=== PATIENT | female | born 1965 | race Caucasian/White ===

== ENCOUNTER 2020-08-11 17:05 | Emergency (ER) | payer OTHER, MEDICAID, SELFPAY ==
[2020-08-11 19:29] VITALS: BP 141/80; PULSE 53; RESP 16; TEMP 36.1; BMI 28.8
--- NOTE | 2020-08-11 20:40 | CT_ITS ---
EXAMINATION: CT ABDOMEN AND PELVIS WITH CONTRAST CLINICAL INFORMATION: Right upper and left lower quadrant abdominal pain. Left flank pain. Bloating. COMPARISON: CT abdomen pelvis 12/12/2019 TECHNIQUE: Multidetector volumetric images were obtained from the superior aspect of the liver through the pubic symphysis following administration 85 mL of Omnipaque 350 intravenous contrast. Sagittal and coronal reformatted images were obtained on the technologist's workstation. Oral contrast: No This CT examination was performed using dose optimization techniques as appropriate, variously including the following: *Automated exposure control *Adjustment of mA and/or kV according to patient size (this includes techniques or standardized protocols for targeted exams where dose is matched to indication/reason for exam; i.e. extremities or head) *Use of iterative reconstruction technique DLP: 692 mGy-cm FINDINGS: Visualized lung bases demonstrate mild dependent atelectasis. The liver demonstrates normal size, contour and attenuation. The gallbladder is surgically absent. The pancreas is normal in appearance. Punctate calcifications within the spleen suggesting prior granulomatous disease. Small inferior splenule. The adrenal glands are unremarkable. Symmetrically enhancing kidneys. There is no hydronephrosis of either kidney. The stomach is decompressed. Normal caliber loops of small bowel. Moderate stool burden throughout the majority of the colon. The appendix is not clearly visualized, however, there is no focal inflammatory stranding within the right lower quadrant. Nonaneurysmal abdominal aorta which demonstrates only mild atherosclerotic disease. 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 No retroperitoneal lymphadenopathy. The bladder is only mildly distended resulting in suboptimal evaluation, however, there does appear to be mild diffuse bladder wall thickening. Unremarkable CT appearance of the uterus. No inguinal lymphadenopathy. No gross free pelvic fluid. Mild to moderate diffuse degenerative changes of the spine. IMPRESSION: 1. Moderate stool burden throughout the joint suggesting constipation. Clinical correlation recommended. 2. Dilated refluxing bilateral ovarian veins with her uterine varices. Findings suggest retroperitoneal venous malformation. 3. The bladder is only mildly distended resulting in suboptimal evaluation, however, there does appear to be mild diffuse bladder wall thickening. Clinical correlation recommended.
--- NOTE | 2020-08-11 20:56 | ED_ITS ---
HPI - Abdominal Pain General Chief Complaint: Abdominal Pain <KIMMIE Duke - Last Filed: 08/12/20 00:17> Stated Complaint: ABD PAIN/BACK PAIN <KIMMIE Duke Last Filed: 08/12/20 00:17> Time Seen by Provider: 08/11/20 20:25 <KIMMIE Duke - Last Filed: 08/12/20 00:17> Source: patient <KIMMIE Duke Last Filed: 08/12/20 00:17> Mode of arrival: ambulatory <KIMMIE Duke Last Filed: 08/12/20 00:17> History of Present Illness HPI narrative: 55-year-old female with a past medical history of legally blind, C- section, cholecystectomy c/o RUQ and LLQ abdominal pain radiating to L flank x1 week. Reports symptoms have become constant/worsening. admits to feeling bloated, and nausea. Reports saw GI Dr. Mitchell who placed her on Dicyclomine without relief, and her OBGYN who scheduled her for a barium study in Aug. Patient reports feels pressure/ bloating and vaginal area like her organs or falling out . Admits merchandising director examed her in office this week and did not appreciate any vaginal prolapse. denies fever, chills, vomiting, diarrhea /constipation, dysuria /hematuria, vaginal bleeding /discharge <KIMMIE Duke - Last Filed: 08/12/20 00:17> MD elicited complaint: abdominal pain and flank pain <KIMMIE Duke Last Filed: 08/12/20 00:17> Related Data Allergies/Adverse Reactions: Allergies Allergy/AdvReac Type Severity Reaction Status Date / Time latex [LATEX] Allergy Intermediate RASH Unverified 07/13/20 14:47 erythromycin base Allergy Unknown STOMACH Unverified 07/13/20 14:47 [ERYTHROMYCIN BASE] UPSET Penicillins [PENICILLINS] Allergy Unknown ANAPHYLAXIS Unverified 07/13/20 14:47 Latex Allergy Unknown rash Uncoded 10/05/12 00:00 PCN Allergy Unknown throat Uncoded 10/05/12 00:00 swelling <KIMMIE Duke Last Filed: 08/12/20 00:17> Review of Systems Review of Systems Constitutional: No Weight loss, No Fever, No Chills Cardiovascular: No Chest Pain, No SOB Respiratory: No Cough, No Sputum Gastrointestinal:+ Nausea, No Vomiting, No Diarrhea, No Constipation, + Abdominal pain Genitourinary: No irregular bleeding, No Dysuria, No Urinary Frequency, No Hematuria, No Urinary Incontinence, No Urgency, + Flank Pain,No vaginal bleeding or discharge Skin: No Skin Lesions, No rash <KIMMIE Duke - Last Filed: 08/12/20 00:17> Yes all other systems are reviewed and are negative <KIMMIE Duke - Last Filed: 08/12/20 00:17> Physical Exam Vital Signs: Vital Signs: Vital Signs Temp Pulse Resp BP Pulse Ox 08/11/20 22:22 98.4 F 54 18 117/44 L 98 08/11/20 19:29 96.9 F 53 16 141/80 H Body Mass Index 28.8 <KIMMIE Duke - Last Filed: 08/12/20 00:17> Vital Signs: Vital Signs Temp Pulse Resp BP Pulse Ox 08/11/20 22:22 98.4 F 54 18 117/44 L 98 08/11/20 19:29 96.9 F 53 16 141/80 H Body Mass Index 28.8 <Daljit Mao MD - Last Filed: 08/15/20 14:42> Const: General: cooperative and healthy appearing <KIMMIE Duke - Last Filed: 08/12/20 00:17> Orientation/consciousness: patient oriented x3 <KIMMIE Duke Last Filed: 08/12/20 00:17> Limitations: no limitations <KIMMIE Duke - Last Filed: 08/12/20 00:17> HENMT: Head: Yes normal to inspection <KIMMIE Duke Last Filed: 08/12/20 00:17> Ears: hearing grossly normal bilaterally <KIMMIE Duke Last Filed: 08/12/20 00:17> General nose exam: Normal external nose present <KIMMIE Duke Last Filed: 08/12/20 00:17> Face and sinus: Yes normal facial exam <KIMMIE Duke Last Filed: 08/12/20 00:17> Eyes: General: appearance normal, both eyes and all related structures <KIMMIE Duke Last Filed: 08/12/20 00:17> EOM: EOMs intact bilaterally <KIMMIE Duke - Last Filed: 08/12/20 00:17> Neck: Neck: Yes normal visual inspection <KIMMIE Duke - Last Filed: 08/12/20 00:17> Resp: Effort & Inspection: normal respiratory effort <KIMMIE Duke - Last Filed: 08/12/20 00:17> Cardio: Rate: regular rate <KIMMIE Duke - Last Filed: 08/12/20 00:17> GI: Inspection: Yes normal to inspection <KIMMIE Duke - Last Filed: 08/12/20 00:17> Palpation (GI): Soft to palpation, Tenderness to palpation present (GI) in the LLQ and in the RLQ, no guarding and not rigid <KIMMIE Duke - Last File d: 08/12/20 00:17> Skin: Rashes: no rashes <KIMMIE Duke - Last Filed: 08/12/20 00:17> Wounds: no wounds <KIMMEI Duke - Last Filed: 08/12/20 00:17> Neuro: General: patient oriented x3 <KIMMIE Duke - Last Filed: 08/12/20 00:17> Gait exam (Neuro): Normal gait present <KIMMIE Duke - Last Filed: 08/12/20 00:17> Extrem: General: Yes normal to inspection <KIMMIE Duke - Last Filed: 08/12/20 00:17> Course Course Course Narrative: -2242-- ALT chronically elevated, labs otherwise unremarkable - UA with trace leuks and trace epithelials - CT showing mild stool burden throughout the colon suggestive of constipation. Dilated refluxing bilateral ovarian veins suggesting retroperitoneal venous malformation. Bladder is mildly distended resulting in suboptimal evaluation - lab and imaging results discussed with patient including worrisome signs and symptoms and strict return precautions. Discussed close follow-up with GI/ merchandising director. Patient verbalized understanding feel safe for discharge <KIMMIE Duke - Last Filed: 08/12/20 00:17> I have reviewed the chart <Daljit Mao MD - Last Filed: 08/15/20 14:42> MDM - Abdominal Pain MDM Narrative Medical decision making narrative: 55-year-old female with a past medical history of legally blind, C- section, cholecystectomy c/o RUQ and LLQ abdominal pain radiating to L flank x1 week. On exam VSS, NAD/ nontoxic-appearing, abdomen soft with RUQ/LLQ ttp, no rebound or guarding. Concern for diverticulitis vs colitis vs pancreatitis vs IBS. Low concern for SBO/vaginal prolapse with recent negative merchandising director exam or ovarian torsion Plan: Labs, UA, CT AP, reassess <KIMMIE Duke - Last Filed: 08/12/20 00:17> Lab Data Result diagrams: : 08/11/20 21:29 08/11/20 21:29 <KIMMIE Duke - Last Filed: 08/12/20 00:17> Labs: Lab Results 08/11/20 08/11/20 08/11/20 Range/Units 21:29 21:29 21:29 WBC 6.8 (4.8-10.8) X10*3/uL RBC 4.19 L (4.20-5.50) X10*6/uL Hgb 12.8 (12.0-16.0) g/dl Hct 38.2 (37-47) % MCV 91.2 (80-98) fL MCH 30.5 (27.0-33.0) pg MCHC 33.5 (31.0-35.0) g/dl RDW 12.9 (11.0-16.0) % Plt Count 327 (160-400) X10*3/uL MPV 10.4 (9.4-12.3) fL Immature Gran % (Auto) 0.3 (0.0-0.4) % Neut % (Auto) 55.8 (45-73) % Lymph % (Auto) 35.6 (20-40) % [place] % (Auto) 6.4 (2-11) % Eos % (Auto) 1.5 (0-4) % Baso % (Auto) 0.4 (0-2) % Lymph # (Auto) 2.4 (1.2-4.9) X10*3/uL [place] # (Auto) 0.4 (0.1-1.2) X10*3/uL Eos # (Auto) 0.1 (0.0-0.4) X10*3/uL Baso # (Auto) 0.0 (0.0-0.2) X10*3/uL Abs Immat Gran (auto) 0.02 (0.00-0.03) X10*3/uL Absolute Neuts (auto) 3.8 (2.0-8.3) X10*3/uL Absolute Nucleated RBC 0.000 (0.0-0.012) X10*3/uL Nucleated RBC % (auto) 0.0 (0.0-0.2) /100WBC Hold Blue Top SEE NOTE Sodium (135-145) mmol/L Potassium (3.3-5.1) mmol/l Chloride (96-108) mmol/L Carbon Dioxide (22-29) mmol/L Anion Gap (12-20) BUN (9-16) mg/dL Creatinine (0.5-1.4) mg/dL Estim Creat Clear Calc Estimated GFR Random Glucose (60-115) mg/dL Calcium (8.4-10.2) mg/dL Magnesium (1.6-2.6) mg/dL Total Bilirubin (0.0-1.0) mg/dL Direct Bilirubin (0.0-0.5) mg/dL AST (5-31) U/L ALT (0-31) U/L Alkaline Phosphatase (39-117) U/L Total Protein (6.5-8.0) g/dL Albumin (3.5-5.0) g/dL Lipase (8-78) U/L Urine Color YELLOW Urine Appearance CLEAR Urine pH 6.0 (5.0-8.0) Ur Specific [place] 1.010 (1.005-1.025) Urine Protein NEG (NEG-TRACE) MG/DL Urine Glucose (UA) NEG (NEG) MG/DL Urine Ketones NEG (NEG) MG/DL Urine Blood NEG (NEG) Urine Nitrite NEG (NEG) Ur Leukocyte Esterase TRACE H (NEG) Urine RBC 0 (0) /HPF Urine WBC 0-2 (0-4) /HPF Ur Squamous Epith Cells TRACE /LPF Urine Bacteria 1+ /LPF 08/11/20 Range/Units 21:29 WBC (4.8-10.8) X10*3/uL RBC (4.20-5.50) X10*6/uL Hgb (12.0-16.0) g/dl Hct (37-47) % MCV (80-98) fL MCH (27.0-33.0) pg MCHC (31.0-35.0) g/dl RDW (11.0-16.0) % Plt Count (160-400) X10*3/uL MPV (9.4-12.3) fL Immature Gran % (Auto) (0.0-0.4) % Neut % (Auto) (45-73) % Lymph % (Auto) (20-40) % [place] % (Auto) (2-11) % Eos % (Auto) (0-4) % Baso % (Auto) (0-2) % Lymph # (Auto) (1.2-4.9) X10*3/uL [place] # (Auto) (0.1-1.2) X10*3/uL Eos # (Auto) (0.0-0.4) X10*3/uL Baso # (Auto) (0.0-0.2) X10*3/uL Abs Immat Gran (auto) (0.00-0.03) X10*3/uL Absolute Neuts (auto) (2.0-8.3) X10*3/uL Absolute Nucleated RBC (0.0-0.012) X10*3/uL Nucleated RBC % (auto) (0.0-0.2) /100WBC Hold Blue Top Sodium 140 (135-145) mmol/L Potassium 4.0 (3.3-5.1) mmol/l Chloride 104 (96-108) mmol/L Carbon Dioxide 30 H (22-29) mmol/L Anion Gap 10 L (12-20) BUN 7 L (9-16) mg/dL Creatinine 0.65 (0.5-1.4) mg/dL Estim Creat Clear Calc 111.1 Estimated GFR > 60 Random Glucose 100 (60-115) mg/dL Calcium 9.3 (8.4-10.2) mg/dL Magnesium 1.9 (1.6-2.6) mg/dL Total Bilirubin 0.4 (0.0-1.0) mg/dL Direct Bilirubin 0.2 (0.0-0.5) mg/dL AST 22 (5-31) U/L ALT 54 H (0-31) U/L Alkaline Phosphatase 79 (39-117) U/L Total Protein 7.4 (6.5-8.0) g/dL Albumin 4.6 (3.5-5.0) g/dL Lipase 19 (8-78) U/L Urine Color Urine Appearance Urine pH (5.0-8.0) Ur Specific [place] (1.005-1.025) Urine Protein (NEG-TRACE) MG/DL Urine Glucose (UA) (NEG) MG/DL Urine Ketones (NEG) MG/DL Urine Blood (NEG) Urine Nitrite (NEG) Ur Leukocyte Esterase (NEG) Urine RBC (0) /HPF Urine WBC (0-4) /HPF Ur Squamous Epith Cells /LPF Urine Bacteria /LPF <KIMMIE Duke - Last Filed: 08/12/20 00:17> Lab Results 08/11/20 08/11/20 08/11/20 Range/Units 21:29 21:29 21:29 WBC 6.8 (4.8-10.8) X10*3/uL RBC 4.19 L (4.20-5.50) X10*6/uL Hgb 12.8 (12.0-16.0) g/dl Hct 38.2 (37-47) % MCV 91.2 (80-98) fL MCH 30.5 (27.0-33.0) pg MCHC 33.5 (31.0-35.0) g/dl RDW 12.9 (11.0-16.0) % Plt Count 327 (160-400) X10*3/uL MPV 10.4 (9.4-12.3) fL Immature Gran % (Auto) 0.3 (0.0-0.4) % Neut % (Auto) 55.8 (45-73) % Lymph % (Auto) 35.6 (20-40) % [place] % (Auto) 6.4 (2-11) % Eos % (Auto) 1.5 (0-4) % Baso % (Auto) 0.4 (0-2) % Lymph # (Auto) 2.4 (1.2-4.9) X10*3/uL [place] # (Auto) 0.4 (0.1-1.2) X10*3/uL Eos # (Auto) 0.1 (0.0-0.4) X10*3/uL Baso # (Auto) 0.0 (0.0-0.2) X10*3/uL Abs Immat Gran (auto) 0.02 (0.00-0.03) X10*3/uL Absolute Neuts (auto) 3.8 (2.0-8.3) X10*3/uL Absolute Nucleated RBC 0.000 (0.0-0.012) X10*3/uL Nucleated RBC % (auto) 0.0 (0.0-0.2) /100WBC Hold Blue Top SEE NOTE Sodium (135-145) mmol/L Potassium (3.3-5.1) mmol/l Chloride (96-108) mmol/L Carbon Dioxide (22-29) mmol/L Anion Gap (12-20) BUN (9-16) mg/dL Creatinine (0.5-1.4) mg/dL Estim Creat Clear Calc Estimated GFR Random Glucose (60-115) mg/dL Calcium (8.4-10.2) mg/dL Magnesium (1.6-2.6) mg/dL Total Bilirubin (0.0-1.0) mg/dL Direct Bilirubin (0.0-0.5) mg/dL AST (5-31) U/L ALT (0-31) U/L Alkaline Phosphatase (39-117) U/L Total Protein (6.5-8.0) g/dL Albumin (3.5-5.0) g/dL Lipase (8-78) U/L Urine Color YELLOW Urine Appearance CLEAR Urine pH 6.0 (5.0-8.0) Ur Specific [place] 1.010 (1.005-1.025) Urine Protein NEG (NEG-TRACE) MG/DL Urine Glucose (UA) NEG (NEG) MG/DL Urine Ketones NEG (NEG) MG/DL Urine Blood NEG (NEG) Urine Nitrite NEG (NEG) Ur Leukocyte Esterase TRACE H (NEG) Urine RBC 0 (0) /HPF Urine WBC 0-2 (0-4) /HPF Ur Squamous Epith Cells TRACE /LPF Urine Bacteria 1+ /LPF /16/20 Range/Units 21:29 WBC (4.8-10.8) X10*3/uL RBC (4.20-5.50) X10*6/uL Hgb (12.0-16.0) g/dl Hct (37-47) % MCV (80-98) fL MCH (27.0-33.0) pg MCHC (31.0-35.0) g/dl RDW (11.0-16.0) % Plt Count (160-400) X10*3/uL MPV (9.4-12.3) fL Immature Gran % (Auto) (0.0-0.4) % Neut % (Auto) (45-73) % Lymph % (Auto) (20-40) % [place] % (Auto) (2-11) % Eos % (Auto) (0-4) % Baso % (Auto) (0-2) % Lymph # (Auto) (1.2-4.9) X10*3/uL [place] # (Auto) (0.1-1.2) X10*3/uL Eos # (Auto) (0.0-0.4) X10*3/uL Baso # (Auto) (0.0-0.2) X10*3/uL Abs Immat Gran (auto) (0.00-0.03) X10*3/uL Absolute Neuts (auto) (2.0-8.3) X10*3/uL Absolute Nucleated RBC (0.0-0.012) X10*3/uL Nucleated RBC % (auto) (0.0-0.2) /100WBC Hold Blue Top Sodium 140 (135-145) mmol/L Potassium 4.0 (3.3-5.1) mmol/l Chloride 104 (96-108) mmol/L Carbon Dioxide 30 H (22-29) mmol/L Anion Gap 10 L (12-20) BUN 7 L (9-16) mg/dL Creatinine 0.65 (0.5-1.4) mg/dL Estim Creat Clear Calc 111.1 Estimated GFR > 60 Random Glucose 100 (60-115) mg/dL Calcium 9.3 (8.4-10.2) mg/dL Magnesium 1.9 (1.6-2.6) mg/dL Total Bilirubin 0.4 (0.0-1.0) mg/dL Direct Bilirubin 0.2 (0.0-0.5) mg/dL AST 22 (5-31) U/L ALT 54 H (0-31) U/L Alkaline Phosphatase 79 (39-117) U/L Total Protein 7.4 (6.5-8.0) g/dL Albumin 4.6 (3.5-5.0) g/dL Lipase 19 (8-78) U/L Urine Color Urine Appearance Urine pH (5.0-8.0) Ur Specific [place] (1.005-1.025) Urine Protein (NEG-TRACE) MG/DL Urine Glucose (UA) (NEG) MG/DL Urine Ketones (NEG) MG/DL Urine Blood (NEG) Urine Nitrite (NEG) Ur Leukocyte Esterase (NEG) Urine RBC (0) /HPF Urine WBC (0-4) /HPF Ur Squamous Epith Cells /LPF Urine Bacteria /LPF <Daljit Mao MD - Last Filed: 08/15/20 14:42> Discharge Plan Discharge Clinical Impression: Abdominal pain <KIMMIE Duke - Last Filed: 08/12/20 00:17> Patient Disposition: Home, Self-Care <KIMMIE Duke - Last Filed: 08/12/20 00:17> Instructions: Abdominal Pain (ED) <KIMMIE Duke - Last Filed: 08/12/20 00:17> Additional Instructions: your blood work and urine were unremarkable today in the ED. Your CT scan did not show any new/ acute findings to explain your symptoms You need to follow-up with her merchandising director doctor as well as your GI doctor Stay hydrated at home Continue taking laxatives You may also take [id number] enema as needed to have a BM if her symptoms persist and/or worsen, you have fever, or unable to eat or drink, do not have a bowel movement or passed gas for 2 days return to the ED <KIMMIE Duke - Last Filed: 08/12/20 00:17> Referrals: Cruz Mitchell [Physician] - 2 days <KIMMIE Duke - Last Filed: 08/12/20 00:17> Interventions: ED Discharge Assessment Last Done: 08/12/20 02:04 <KIMMIE Duke - Last Filed: 08/12/20 00:17> Discharge Date/Time: 08/12/20 02:06 <KIMMIE Duke - Last Filed: 08/12/20 00:17> [facility] Past Medical History Attestation statement: The following information was validated with the patient. <KIMMIE Duke - Last Filed: 08/12/20 00:17> Social History Social History: Social History Advance Directives: No Advance Directives Information Provided: Yes <KIMMIE Duke - Last Filed: 08/12/20 00:17>
[2020-08-11 22:00] LABS: MANUAL DIFF FLAG NO
[2020-08-11 22:06] LABS: Basophils Percent Auto 0.4 % (0-2); Eosinophils Absolute Auto 0.1 X10*3/uL (0.0-0.4); Eosinophils Percent Auto 1.5 % (0-4); Hematocrit 38.2 % (37-47); Hemoglobin 12.8 g/dl (12.0-16.0); Imm Gran Abs Auto 0.02 X10*3/uL (0.00-0.03); Imm Gran Pct Auto 0.3 % (0.0-0.4); Lymphocytes Absolute Auto 2.4 X10*3/uL (1.2-4.9); Lymphocytes Percent Auto 35.6 % (20-40); Mean Corpuscular HGB Conc 33.5 g/dl (31.0-35.0); Mean Corpuscular Hemoglobin 30.5 pg (27.0-33.0); Mean Corpuscular Volume 91.2 fL (80-98); Mean Platelet Volume 10.4 fL (9.4-12.3); Monocytes Absolute Auto 0.4 X10*3/uL (0.1-1.2); Monocytes Percent Auto 6.4 % (2-11); Neutrophils Absolute Auto 3.8 X10*3/uL (2.0-8.3); Neutrophils Percent Auto 55.8 % (45-73); Platelet Count 327 X10*3/uL (160-400); Red Blood Count 4.19 X10*6/uL (4.20-5.50); Red Cell Distribution Width 12.9 % (11.0-16.0); White Blood Count 6.8 X10*3/uL (4.8-10.8)
[2020-08-11] MEDS: 0.9 % Sodium Chloride 1,000 ML 999 ML IVCONT (22:06)
[2020-08-11] MEDS: ondansetron HCL 4 MG/2 ML VIAL IVPUSH (22:15)
[2020-08-11 22:22] VITALS: BP 117/44; PULSE 54; RESP 18; TEMP 36.9; O2SAT 98
[2020-08-11 22:25] LABS: Glucose Urine UA NEG (NEG); Leukocyte Esterase Urine TRACE (NEG); Nitrite Urine NEG (NEG); Urine Blood NEG (NEG); Urine Ketones NEG (NEG); Urine Protein NEG (NEG-TRACE)
[2020-08-11 22:29] LABS: Alanine Aminotransferase 54 U/L (0-31); Albumin Level 4.6 g/dL (3.5-5.0); Alkaline Phosphatase 79 U/L (39-117); Anion Gap 10 (12-20); Aspartate Amino Transferase 22 U/L (5-31); Bilirubin Direct 0.2 mg/dL (0.0-0.5); Bilirubin Total 0.4 mg/dL (0.0-1.0); Blood Urea Nitrogen 7 mg/dL (9-16); Calcium 9.3 mg/dL (8.4-10.2); Carbon Dioxide 30 mmol/L (22-29); Chloride 104 mmol/L (96-108); Creatinine Clr Calc Pharmacy 111.1; Estimated Glomerular Filt Rate > 60; Glucose Random 100 mg/dL (60-115); Lipase 19 U/L (8-78); Magnesium 1.9 mg/dL (1.6-2.6); Sodium 140 mmol/L (135-145); Total Protein 7.4 g/dL (6.5-8.0)
[2020-08-11 22:31] LABS: Appearance Urine CLEAR; Color Urine YELLOW
[2020-08-11] MEDS: iohexoL 350 MG/ML 100 ML INFUS..BTL IV (22:50)
[2020-08-11 23:10] LABS: Bacteria Urine 1+ /LPF; RBC Urine 0 /HPF (0); Squamous Epithelial Cell Urine TRACE /LPF; WBC Urine 0-2 /HPF (0-4)
[2020-08-12 00:36] VITALS: BP 127/76; PULSE 60; O2SAT 95
== END 2020-08-12 02:06 | disposition home or self-care (01) ==
PROVIDERS: Physician Assistant; Emergency Provider Emergency Medicine; PCP Nurse Practitioner Adult Health
DX: R10.11 Right upper quadrant pain (principal); R10.32 Left lower quadrant pain; M54.5 Low back pain; Z79.899 Other long term (current) drug therapy
CPT/HCPCS: 36415; 74177; 80048; 80076; 81001; 81003; 83690; 83735; 85025; 87086; 96361; 96374; 99284; J2405